=== PATIENT | female | born 1985 | race Caucasian/White ===

== ENCOUNTER 2018-08-18 22:29 | Emergency (ER) | payer BC ==
[~2018-08-18 22:29] MED LIST: ETHI1TAB26 PO
[2018-08-18 22:34] VITALS: BP 139/87
[2018-08-18] MEDS ORDERED: AMOX-559 PO (22:50)
--- NOTE | 2018-08-18 22:51 | ER Report ---
History and Physical Time Seen By MD: 22:35 HPI/ROS CHIEF COMPLAINT: Dog bite lower lip HISTORY OF PRESENT ILLNESS: 33-year-old female presents ambulatory the ER with a large laceration to her right lower lip. Patient states her dog was jumping about and accidentally bit her in the lower lip. It was not a provoked attack. Patient thinks her tetanus status is up-to-date. Home Meds Active Scripts Amoxicillin/Pot Clav 875-125 Mg Tab (AUGMENTIN 875-125 TABLET) 1 Each Tablet, 1 TAB PO Q12H for infection, #10 TAB TAKE ONE TABLET BY MOUTH EVERY 12 HOURS Prov:VEDA MASON DO 08/18/18 Discontinued Reported Medications Ethinyl Estradiol/Drospirenone (Janki 28 Tablet) 1 Tab Tablet, 1 TAB PO 11/10/07 Reviewed Nurses Notes: Yes Old Medical Records Reviewed: Yes Constitutional Vital Sign - Last 24 Hours 08/18/18 22:34 Pulse 68 Resp 16 B/P (MAP) 139/87 Pulse Ox 95 O2 Delivery Room Air Physical Exam General appearance: Alert no distress. HEENT: Eyes normal, examination of the nose is normal. Examination of the lower lip reveals a deep laceration extending down to the muscle on the left lateral aspect. There is a tiny laceration that crosses the vermilion border to the right lower lip that appears superficial. Respiratory: Chest is non tender, lungs are clear to auscultation. Cardiac: Regular rate and rhythm DIFFERENTIAL DIAGNOSIS: After history and physical exam differential diagnosis was considered for thumb bite, lip laceration, foreign body, infection. Medical Decision Making ED Course/Re-evaluation ED Course She was admitted to an examination room. H&P was done. The differential diagnosis was considered. Patient's tetanus status was verified. Patient's lacerations were repaired as noted below. Wounds were infiltrated. And cleaned. Patient was medicated with Augmentin 875 g prior to discharge. She is given a prescription for 5 day course of twice a day Augmentin. Suture removal to be in 5 days Procedure: Laceration repair. Verbal consent was obtained from the patient. The 3.0 cm laceration on the left lower lip was anesthetized in the usual fashion. The wound was scrubbed, draped and explored to its base with a gloved finger.. There was extension deep down into the muscular portion of the lip The wound was repaired with 40 Vicryl. The wound repair was intermediate. Muscular layer was repaired with a deep Vicryl suture, the buccal surface and lip were approximated with 4-0 Vicryl 6 sutures The procedure was performed by myself. Procedure: Laceration repair. Verbal consent was obtained from the patient. The 1.5 cm laceration on the right lower lip through the vermilion border was anesthetized in the usual fashion. The wound was scrubbed, draped and explored to its base with a gloved finger. The [place] border was approximated 1st. The wound was repaired with 5-0 Prolene 5 sutures. The wound repair was simple. The procedure was performed by myself. Wound care was discussed Decision to Disposition Date: Aug 18, 2018 Decision to Disposition Time: 22:48 Depart Departure Latest Vital Signs Vital Signs Date Time Temp Pulse Resp B/P (MAP) Pulse Ox O2 Delivery O2 Flow Rate FiO2 08/18/18 22:34 68 16 139/87 95 Room Air Impression: Primary Impression: Dog bite of vermilion border of lower lip Additional Impression: Lip laceration Condition: Improved Disposition: HOME OR SELF-CARE New Scripts Amoxicillin/Pot Clav 875-125 Mg Tab (AUGMENTIN 875-125 TABLET) 1 Each Tablet 1 TAB PO Q12H for infection, #10 TAB TAKE ONE TABLET BY MOUTH EVERY 12 HOURS Prov: VEDA MASON DO 08/18/18 Patient Instructions: Animal Bite (ED), Facial Laceration (ED) Additional Instructions: Take ibuprofen 200 mg 3 tablets 3 times a day with food Perform daily wound care, gently cleanse the area with peroxide and water mixed 50-50 and cover with a thin layer of antibiotic ointment Have your stitches removed from the outer laceration in 5 days Problem Qualifiers Primary Impression: Dog bite of vermilion border of lower lip Encounter type: initial encounter Qualified Codes: S01.551A - Open bite of lip, initial encounter; W54.0XXA - Bitten by dog, initial encounter Additional Impression: Lip laceration Encounter type: initial encounter Qualified Codes: S01.511A - Laceration without foreign body of lip, initial encounter VEDA MASON DO Aug 18, 2018 22:51
[2018-08-18] MEDS ORDERED: AMOX/CLAV 875 MG TAB PO ONE (22:55)
== END 2018-08-18 23:29 | disposition home or self-care (01) ==
LOC: ER 22:48
DX: S01.551A Open bite of lip, initial encounter (principal); S01.511A Laceration without foreign body of lip, initial encounter; W54.0XXA Bitten by dog, initial encounter
CPT/HCPCS: 99283